=== PATIENT | male | born 1970 | race African-American/Black ===

== ENCOUNTER 2016-11-09 13:01 | Emergency (ER) | payer BC, OTHER ==
[~2016-11-09] VITALS: Ht 170.2 cm; Wt 99.8 kg
[2016-11-09 13:46] LABS: Basophils # (auto) 0 uL; Basophils % (auto) 0.5 % (0.0-2.0); Eosinophils # (auto) 0.2 uL; Eosinophils % (auto) 3.1 % (0.0-7.0); Hematocrit 45.8 % (41.0-53.0); Hemoglobin 14.9 g/dL (13.5-17.5); Lymphocytes # (auto) 1.6 uL; Lymphocytes % (auto) 26.2 % (10.0-50.0); Mean Corpuscular Hemoglobin 29.2 pg (28.0-32.0); Mean Corpuscular Hgb Conc. 32.6 g/dL (32.0-36.0); Mean Corpuscular Volume 89.6 fL (80.0-100.0); Mean Platelet Volume 10.8 fL (7.4-10.4); Monocytes # (auto) 0.5 uL; Monocytes % (auto) 7.3 % (0.0-12.0); Neutrophils # (auto) 3.9 uL; Neutrophils % (auto) 62.9 % (37.0-80.0); Platelet Count (auto) 243 10^3/uL (140-450); Red Cell Distribution Width 11.8 % (11.6-16.0); White Blood Cell 6.2 10^3/uL (4.4-10.8)
[2016-11-09 14:11] LABS: Albumin 4.3 g/dL (3.4-5.0); BUN/Creatinine Ratio 22.2; Bilirubin, Total 0.7 mg/dL (0.2-1.0); Calcium 8.6 mg/dL (8.5-10.1); Magnesium 2.5 mg/dL (1.6-2.6); Potassium 3.3 mmol/L (3.5-5.1); Total Protein 8.3 g/dL (6.4-8.2)
[2016-11-09] MEDS ORDERED: SODIUM CHLORIDE 0.9% 1,000 ML IV ONE (14:45)
[2016-11-09] MEDS ORDERED: POTASSIUM CHL 20 Meq TABLET PO ONE (14:45)
[2016-11-09 14:53] LABS: Urine Bilirubin Negative (Negative); Urine Blood Negative /uL (Negative); Urine Color Colorless (Yellow); Urine Glucose Normal (Normal); Urine Ketone Negative (Negative); Urine Nitrite Negative (Negative); Urine RBC <1 /hpf (0 - 3); Urine Urobilinogen Normal (Negative); Urine pH 6.5 (5.0-8.0)
[2016-11-09 16:18] VITALS: BP 135/72
== END 2016-11-09 16:18 | disposition home or self-care (01) ==
LOC: EDUNIT# 13:01 → ER 13:08
DX: R42 Dizziness and giddiness (principal); E87.6 Hypokalemia; E87.1 Hypo-osmolality and hyponatremia; R73.9 Hyperglycemia, unspecified; R55 Syncope and collapse; E78.5 Hyperlipidemia, unspecified; G47.30 Sleep apnea, unspecified
CPT/HCPCS: 36415; 71010; 80053; 81001; 83735; 84443; 84484; 85025; 85379; 93005; 94761; 96360; 96361

== ENCOUNTER 2025-06-23 13:53 | Emergency (ER) | payer OTHER ==
[~2025-06-23] VITALS: Ht 170.2 cm; Wt 103.3 kg
[2025-06-23 14:12] VITALS: PULSE 107; RESP 14; O2SAT 95
--- NOTE | 2025-06-23 14:24 | ED.PDOC ---
HPI Comments 54 y.o male with PMHx of HLD, HTN, GERD, and hyperthyroidism, presents to the ED via EMS for a chief complaint of palpitations associated with SOB that started today. Patient reports he felt chest pain prior to symptoms occurring, states he checked his BP and HR which were elevated. Patient's normal resting HR is in between 60-70 but today noticed it was 90 with a recheck at 140-150. Patient felt palpitations brought on SOB in which is actively present at bedside. Patient received NTG x 1 by EMS prior to ED arrival and noted a HR of 200. At bedside, HR is 105. He denies any chest pain at this time, fever, chills, nausea, vomiting , abdominal pain. Patient has not taken his metoprolol yet and denies medication use for thyroid disease given most updated labs done showing a normal thyroid panel. Chief Complaint: Shortness of Breath Time Seen by MD: 14:12 Primary Care Provider: DR JOSEFA RODRIGUEZ Reviewed Notes: Nurses Notes, Medications, Allergies Allergies: Coded Allergies: NO KNOWN ALLERGIES (Unverified , 11/09/16) Information Source: Patient Mode of Arrival: EMS Severity: Moderate Timing: Hours Duration: Since onset Location: Substernal Radiation: No Radiation Quality: Aching Onset: At Rest Cardiac Risk Factors: Hyperlipidemia, HTN PE Risk Factors: None History of: None Modifying Factors: Nothing Associated Signs and Symptoms: SOB, Palpitations Past Medical History PAST MEDICAL HISTORY: GERD, High Lipids, HTN, Thyroid Surgical History (Other): Knee and ankle Family History Family History: No family hx of DM, No family hx of Heart tera, No family hx of HTN, No family hx of Stroke Social History Smoker: Chew Alcohol: Occasionally Drugs: Denies Drug Use Lives In: Home Constitutional: denies: chills, diaphoresis, fatigue, fever, malaise, sweats, weakness, others EENTM: denies: blurred vision, double vision, ear bleeding, ear discharge, ear drainage, ear pain, ear ringing, eye pain, eye redness, hearing loss, mouth pain, mouth swelling, nasal discharge, nose bleeding, nose congestion, nose pain, photophobia, tearing, throat pain, throat swelling, voice changes, others Respiratory: reports: SOB at rest, shortness of breath; denies: cough, hemoptysis, orthopnea, SOB with excertion, stridor, wheezing, others Cardiovascular: reports: chest pain, palpitations; denies: dizzy spells, diaphoresis, Dyspnea on exertion, edema, irregular heart beat, left arm pain, lightheadedness, PND, syncope, others Gastrointestinal: denies: abdomen distended, abdominal pain, blood streaked b owels, constipated, diarrhea, dysphagia, difficulty swallowing, hematemesis, melena, nausea, poor appetite, poor fluid intake, rectal bleeding, rectal pain, vomiting, others Genitourinary: denies: burning, dysuria, flank pain, frequency, hematuria, incontinence, penile discharge, penile sore, pain, testicle pain, testicle swelling, urgency, others Neurological: denies: dizziness, fainting, headache, left sided numbness, left sided weakness, numbness, paresthesia, pre-existing deficit, right sided numbness, right sided weakness, seizure, speech problems, tingling, tremors, weakness, others Musculoskeletal: denies: back pain, gout, joint pain, joint swelling, muscle pain, muscle stiffness, neck pain, others Integumetry: denies: bruises, change in color, change in hair/nails, dryness, laceration, lesions, lumps, rash, wounds, others Allergic/Immunocompromised: denies: Difficulty Healing, Frequent Infections, Hives, Itching, others Hematologic/Lymphatic: denies: anemia, blood clots, easy bleeding, easy bruisi ng, swollen glands, others Endocrine: denies: excessive hunger, excessive sweating, excessive thirst, exce ssive urination, flushing, intolerance to cold, intolerance to heat, unexplained weight gain, unexplained weight loss, others Psychiatric: denies: anxiety, bipolar disorder, depression, hopeless, panic disorder, schizophrenia, sleepless, suicidal, others All Other Systems: Reviewed and Negative Physical Exam General Appearance: No Apparent Distress HEENT: Other (Pupils and face symmetric. Moist mucous membranes.) Neck: Full Range of Motion, Normal Inspection Respiratory: Lungs Clear, No Accessory Muscle Use, No Respiratory Distress, Normal Breath Sounds Cardiovascular: No Edema, No JVD, Tachycardia Breast Exam: Deferred Gastrointestinal: Non Tender, Soft Genitalia: Deferred Pelvic: Deferred Rectal: Deferred Extremities: Normal inspection, Normal range of motion, Non-tender, No pedal edema Neurologic: Alert (Oriented x4), Normal Affect, Normal Mood, Other (No gross focal deficit) Cerebellar Function: NOT DONE Reflexes: NOT DONE Skin: Dry, Normal Color, Warm Lymphatic: NOT DONE EKG EKG : Comments Sinus tach, rate 119, normal intervals, left axis deviation, old inferior infarct, nonspecific T change. Was a procedure done? Was a procedure done?: No CP Differential Dx Differential Diagnosis: Angina, Electrolyte Disorder, Hyperthyroidism, Hyperventilation, CO, Pulmonary Embolus, Sinus Tachycardia Differential Diagnosis: Angina, Chest Wall Pain, Costochondritis, Esophageal reflux/spasm, Gastritis, Myocardial Infarction, Pericarditis, Pulmonary Embolus X-Ray, Labs, Meds, VS Vital Signs Date Time Temp Pulse Resp B/P (MAP) Pulse Ox O2 Delivery O2 Flow Rate FiO2 06/23/25 17:51 78 17 145/86 (105) 95 06/23/25 14:41 101 151/84 06/23/25 14:12 14 95 Room Air* 0 21 06/23/25 14:12 98.7 107 14 149/93 (111) 95 98.7 06/23/25 14:12 107 14 95 Room Air* 0 21 06/23/25 14:00 98.2 132 18 174/105 98 98.2 06/23/25 13:58 119 Lab Test 06/23/25 16:22 06/23/25 15:57 06/23/25 14:25 06/23/25 14:23 Range/Units Lactic Acid Level 2.1 *H 2.9 *H 0.4-2.0 mmol/L Troponin I High Sensitivity 5 < 3 L </=54 ng/L White Blood Count 8.4 4.4-10.8 10^3/uL Red Blood Count 4.64 4.5-5.90 10^6/uL Hemoglobin 14.5 13.5-17.5 g/dL Hematocrit 41.4 41.0-53.0 % Mean Corpuscular Volume 89.2 80.0-100.0 fL Mean Corpuscular Hemoglobin 31.3 28.0-32.0 pg Mean Corpuscular Hemoglobin Concent 35.1 32.0-36.0 g/dL Red Cell Distribution Width 12.1 11.8-14.3 % Platelet Count 273 140-450 10^3/uL Mean Platelet Volume 10.5 6.9-10.8 fL Neutrophils (%) (Auto) 66.0 37.0-80.0 % Lymphocytes (%) (Auto) 19.6 10.0-50.0 % Monocytes (%) (Auto) 8.4 0.0-12.0 % Eosinophils (%) (Auto) 4.8 0.0-7.0 % Basophils (%) (Auto) 1.2 0.0-2.0 % Neutrophils # (Auto) 5.6 1.6-8.6 10 ^3/uL Lymphocytes # (Auto) 1.7 0.4-5.4 10 ^3/uL Monocytes # (Auto) 0.7 0-1.3 10 ^3/uL Eosinophils # (Auto) 0.4 0-0.8 10 ^3/uL Basophils # (Auto) 0.1 0-0.2 10 ^3/uL Nucleated Red Blood Cells 0.0 % D-Dimer, Quantitative < 0.19 0.0-0.49 mg/L FEU Sodium Level 141 136-145 mmol/L Potassium Level 3.2 L 3.5-5.1 mmol/L Chloride Level 105 98-107 mmol/L Carbon Dioxide Level 24 20-31 mmol/L Anion Gap 12 5-15 Blood Urea Nitrogen 15 9-23 mg/dL Creatinine 0.94 0.700-1.30 mg/dL Glomerular Filtration Rate Calc 98 >90 mL/min BUN/Creatinine Ratio 16.0 10.0-20.0 Serum Glucose 148 H 74-106 mg/dL Calcium Level 9.0 8.7-10.4 mg/dL B-Type Natriuretic Peptide 11.71 0-100 pg/mL Free Thyroxine Index Pending Thyroxine (T4) Pending Triiodothyronine (T3) Uptake Pending Urine Color Light-yellow Yellow Urine Clarity Clear Clear Urine pH 6.0 5.0-9.0 Urine Specific [place] 1.020 1.001-1.035 Urine Protein Negative Negative Urine Ketones Negative Negative Urine Blood Negative Negative /uL Urine Nitrite Negative Negative Urine Bilirubin Negative Negative Urine Urobilinogen Normal Negative mg/dL Urine Leukocyte Esterase Negative Negative /uL Urine RBC 1 0 - 3 /hpf Urine Microscopic WBC 1 0-3 /HPF Urine Squamous Epithelial Cells None seen <5 /hpf Urine Bacteria None seen None Seen /hpf Urine Glucose Trace Normal mg/dL Current Medications Medications (Trade) Dose Ordered Sig/Mitchell Route Start Time Stop Time Status Last Admin Metoprolol Succinate (Toprol Xl) 25 mg ONCE ONCE PO 06/23/25 14:30 06/23/25 14:31 DC 06/23/25 14:41 Sodium Chloride 2,000 ml @ 1,000 mls/hr Q2H ONCE IV 06/23/25 15:30 06/23/25 17:29 DC 06/23/25 15:48 Potassium Bicarbonate (Klor-Con/Ef) 50 meq ONCE ONCE PO 06/23/25 15:30 06/23/25 15:32 DC 06/23/25 15:53 Acetaminophen (Tylenol Tablet Or Capsule) 1,000 mg ONCE ONCE PO 06/23/25 18:30 06/23/25 18:31 DC 06/23/25 18:25 PROCEDURE(s): CXRP - CHEST PORTABLE REASON: sob ORDER NUMBER(s): [id number], ACCESSION NUMBER(s): [id number] CHEST RADIOGRAPH Indication: sob Technique: Single frontal view of the chest was obtained COMPARISON: CXR2 on DOS: 06/17/21 FINDINGS: Lines and Tubes: None Lungs: Clear Pleura: No effusion. No pneumothorax. Cardiomediastinal contours: Unremarkable Bones: Unremarkable IMPRESSION: No acute disease. X-Ray, Labs, Meds, VS Comment 54-year-old male with a history of hypertension, dyslipidemia, thyroid disease and LOUISA complaining of palpitations, transient chest pain and shortness of b reath Vitals remarkable for heart rate 119, BP 174/105 Exam remarkable for tachycardia Rhythm strip independently interpreted by me: Sinus tach, rate 19, no ectopy. Chest x-ray unremarkable CBC, basic metabolic panel, BNP, 1st troponin unremarkable. Lactate 2.9 down to 2.1 on repeat Thyroid panel pending. UA unremarkable. Patient treated with the following in the ED: Metoprolol XL 25 mg p.o., 2 L 0.9 normal saline IV bolus On re-evaluation after metoprolol, heart rate is 96, other vitals were stable. Case was discussed with Dr. Rolon who will arrange for the patient to be transferred to [place] for re-evaluation. Authorization [id number] Time of 1ST Reevaluation: 14:44 Reevaluation 1ST: Unchanged Patient Education/Counseling: Diagnosis, Treatment, Prognosis Family Education/Counseling: No Family Present SEPSIS Sepsis Screen Date sepsis recognized/suspect: Jun 23, 2025 Time Sepsis recognized/suspect: 1355 Recent Procedure: No On Antibiotic Therapy: No Respiratory Rate >20: No Heart Rate >90: Yes Temp<36 C (96.8 F) or >38.3 C: No SBP <90 or MAP <65 mmHG: No New Acute Mental Status Change: No Is the patient on CPAP, BIPAP,: No Physician Orders Chest Portable (06/23/25 14:00) Electrocardigram (06/23/25 14:00) Blood Culture (06/23/25 14:00) Thyroid Panel (06/23/25 14:17) Vital Signs Date Time Temp Pulse Resp B/P (MAP) Pulse Ox O2 Delivery O2 Flow Rate FiO2 06/23/25 17:51 78 17 145/86 (105) 95 06/23/25 14:41 101 151/84 06/23/25 14:12 14 95 Room Air* 0 21 06/23/25 14:12 98.7 107 14 149/93 (111) 95 98.7 06/23/25 14:12 107 14 95 Room Air* 0 21 06/23/25 14:00 98.2 132 18 174/105 98 98.2 06/23/25 13:58 119 Laboratory Tests Test 06/23/25 14:25 06/23/25 16:22 Lactic Acid Level 2.9 mmol/L (0.4-2.0) *H 2.1 mmol/L (0.4-2.0) *H White Blood Count 8.4 10^3/uL (4.4-10.8) Medications Medications Dose Ordered Sig/Mitchell Route Start Time Stop Time Status Last Admin Dose Admin Acetaminophen 1,000 mg ONCE ONCE PO 06/23/25 18:30 06/23/25 18:31 DC 06/23/25 18:25 Metoprolol Succinate 25 mg ONCE ONCE PO 06/23/25 14:30 06/23/25 14:31 DC 06/23/25 14:41 Potassium Bicarbonate 50 meq ONCE ONCE PO 06/23/25 15:30 06/23/25 15:32 DC 06/23/25 15:53 Sodium Chloride 2,000 ml @ 1,000 mls/hr Q2H ONCE IV 06/23/25 15:30 06/23/25 17:29 DC 06/23/25 15:48 Departure 1 Departure Time of Disposition: 18:00 Impression: Primary Impression: Palpitations Additional Impressions: Chest pain Elevated lactic acid level Disposition: 02 SHORT TERM HOSPITAL Admit to: Tele Condition: Guarded Critical Care Note Critical Care Time?: No Stability Stability form required: No Heart Score Heart Score: Heart Score Response (Comments) Value History Slightly Suspicious 0 EKG Repolarization Disturb 1 Age 45-64 1 Risk Factors >3 or Hx ASHD 2 Troponin Normal limit 0 Total 4 I personally scribed for BRANDON CHAMBERS MD ([email or web address]) on 06/23/25 at 14:24. Electronically submitted by Kathia Holland ([facility]). BRANDON CHAMBERS MD Jun 23, 2025 14:24
[2025-06-23] MEDS: METOPROLOL SUCCINATE XL 50 MG TAB PO ONE (14:41)
[2025-06-23] MEDS ORDERED: METOPROLOL SUCCINATE XL 50 MG TAB PO ONE (14:43)
[2025-06-23 14:44] LABS: Hematocrit 41.4 % (41.0-53.0); Hemoglobin 14.5 g/dL (13.5-17.5); Mean Corpuscular Hemoglobin 31.3 pg (28.0-32.0); Mean Corpuscular Volume 89.2 fL (80.0-100.0); Nucleated Red Blood Cells % 0.0 %
[2025-06-23 14:56] LABS: Chloride 105 mmol/L (98-107); Sodium 141 mmol/L (136-145)
[2025-06-23 14:57] LABS: Anion Gap 12 (5-15); Carbon Dioxide 24 mmol/L (20-31)
[2025-06-23 14:58] LABS: Calcium 9.0 mg/dL (8.7-10.4)
[2025-06-23 15:03] LABS: BUN/Creatinine Ratio 16.0 (10.0-20.0); Blood Urea Nitrogen 15 mg/dL (9-23)
[2025-06-23 15:05] LABS: Glucose 148 mg/dL (74-106); Potassium 3.2 mmol/L (3.5-5.1)
[2025-06-23 15:06] LABS: Lactic Acid w/Reflex 2.9 mmol/L (0.4-2.0)
--- NOTE | 2025-06-23 15:10 | DVH ---
CHEST RADIOGRAPH Indication: sob Technique: Single frontal view of the chest was obtained COMPARISON: CXR2 on DOS: 06/17/21 FINDINGS: Lines and Tubes: None Lungs: Clear Pleura: No effusion. No pneumothorax. Cardiomediastinal contours: Unremarkable Bones: Unremarkable IMPRESSION: No acute disease.
[2025-06-23 15:30] LABS: Urine Protein, UAD Negative (Negative)
[2025-06-23] MEDS: SODIUM CHLORIDE 0.9% 2,000 ML IV ONE (15:48)
[2025-06-23] MEDS: POTASSIUM EFFERVESENT TAB 25 MEQ PO ONE (15:53)
[2025-06-23] MEDS ORDERED: POTASSIUM EFFERVESENT TAB 25 MEQ ONE (15:56)
[2025-06-23] MEDS: ACETAMINOPHEN 500 MG TAB or CAP PO ONE (18:25)
[2025-06-23] MEDS ORDERED: ACETAMINOPHEN 500 MG TAB or CAP PO ONE (18:25)
[2025-06-23 20:15] VITALS: BP 143/75; PULSE 74; RESP 20; TEMP 98.7; O2SAT 96
--- NOTE | 2025-06-24 12:52 | ECG ---
[facility] Test Date: 2025-06-23 Test Time: 13:58:06 Pat Name: ARMINDA US Department: Room: Gender: M [employer]ner: OLIVIA : 1970 Requested By: BRANDON CHOW Order Number: [id number] Reading MD: Js Salmon Measurements Intervals [place] Rate: 119 P: 4 MO: 165 QRS: -32 QRSD: 92 T: 7 QT: 324 QTc: 456 Interpretive Statements Sinus tachycardia Inferior infarct, old Consider anterior infarct Electronically Signed On 06-26-2025 9:37:44 PDT by Js Salmon Please click the below link to view image of tracing.
[2025-06-25 08:07] LABS: Free Thyroxine Index 2.2 (1.2-4.9)
== END 2025-06-23 20:38 | disposition short-term general hospital (02) ==
LOC: ER 13:53 → EDUNIT# 13:53 → EDBD 13:53 → ER 20:38
DX: R00.2 Palpitations (principal); R07.89 Other chest pain; E87.20 Acidosis, unspecified; E78.5 Hyperlipidemia, unspecified; I10 Essential (primary) hypertension; F17.200 Nicotine dependence, unspecified, uncomplicated; K21.9 Gastro-esophageal reflux disease without esophagitis; E03.9 Hypothyroidism, unspecified; Z98.890 Other specified postprocedural states
CPT/HCPCS: 36415; 71045; 80048; 81001; 83605; 83880; 84443; 84484; 85025; 85379; 87040; 93005